=== PATIENT | female | born 1995 | race Caucasian/White ===

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

== ENCOUNTER → 2017-11-30 | Outpatient (REF) | payer OTHER | LOC: M SFHCLERA 12:18 | DX: J02.9 Acute pharyngitis, unspecified (principal) ==

== ENCOUNTER → 2017-12-26 | Outpatient (CLI) | payer OTHER ==
[2017-12-26 18:00] LABS: BASO % 0.3 % (0.0-1.0); EOS # 0.1 10^3/uL (0.0-0.50); EOS % 0.5 % (0.0-3.0); HEMATOCRIT 40.9 % (36.0-47.0); HEMOGLOBIN 13.6 g/dl (12.0-16.0); IMMATURE GRANULOCYTE # 0.1 10^3/uL (0-0); IMMATURE GRANULOCYTE % 0.5 % (0-0); LYMPH # 1.8 10^3/uL (1.5-6.5); LYMPH % 17.1 % (24.0-44.0); MEAN CORPUSCULAR HGB CONC 33.3 g/dl (32.0-36.5); MEAN CORPUSCULAR VOLUME 90.1 fl (80.0-96.0); MONO # 0.7 10^3/uL (0.0-0.8); MONO % 6.3 % (0.0-5.0); NEUTROPHILS # 7.8 10^3/uL (1.8-7.7); NEUTROPHILS % 75.3 % (36.0-66.0); PLATELET COUNT, AUTOMATED 210 10^3/uL (150-450); RED BLOOD COUNT 4.54 10^6/uL (4.00-5.40); RED CELL DISTRIBUTION WIDTH 13.3 % (11.5-14.5); WHITE BLOOD COUNT 10.4 10^3/uL (4.0-10.0)
[2017-12-26 21:30] LABS: CHLAMYDIA DNA AMPLIFICATION NEGATIVE (NEGATIVE); GC DNA AMPLIFICATION NEGATIVE (NEGATIVE)
[2017-12-28 14:41] LABS: RUBELLA IgG QUALITATIVE IMMUNE (IMMUNE)
[2017-12-28 14:50] LABS: HBsAg Prenatal NEGATIVE (NEGATIVE)
[2017-12-28 15:09] LABS: HEPATITIS C VIRUS ABY INDEX < 0.0 INDEX (<0.8)
[2017-12-28 15:11] LABS: HIV 1&2 SCREEN CENTAUR NEGATIVE (NEGATIVE)
== END ==
LOC: M LRY 11:00
DX: Z34.81 Encounter for supervision of other normal pregnancy, first trimester (principal); Z3A.01 Less than 8 weeks gestation of pregnancy
CPT/HCPCS: 86762

== ENCOUNTER → 2017-12-31 | Outpatient (REF) | payer OTHER | LOC: M SFHCLERA 11:18 | DX: R11.2 Nausea with vomiting, unspecified (principal) ==

== ENCOUNTER → 2018-03-07 | Outpatient (REF) | payer OTHER | LOC: M LAB REF 12:56 | DX: Z34.82 Encounter for supervision of other normal pregnancy, second trimester (principal) ==

== ENCOUNTER 2018-03-13 18:35 | Outpatient (CLI) | payer OTHER | END 2018-03-13 19:13 | disposition home or self-care (01) | LOC: M LDO 18:35 | DX: Z34.83 Encounter for supervision of other normal pregnancy, third trimester (principal); Z3A.20 20 weeks gestation of pregnancy | CPT/HCPCS: 59025 ==

== ENCOUNTER → 2018-05-31 | Outpatient (CLI) | payer OTHER, MEDICAID ==
[2018-05-31 09:22] LABS: GLUCOSE, FASTING 76 MG/DL (LESS THAN 95)
[2018-05-31 10:33] LABS: 1 HR GLUCOSE 192 MG/DL (LESS THAN 180)
[2018-05-31 11:26] LABS: 2 HR GLUCOSE 172 MG/DL (LESS THAN 155)
[2018-05-31 12:37] LABS: 3 HR GLUCOSE 48 MG/DL (LESS THAN 140)
== END ==
LOC: M LAB 08:10
DX: Z34.82 Encounter for supervision of other normal pregnancy, second trimester (principal); Z3A.00 Weeks of gestation of pregnancy not specified
CPT/HCPCS: 82951

== ENCOUNTER → 2018-07-03 | Outpatient (REF) | payer OTHER, MEDICAID | LOC: M LAB REF 17:12 | DX: Z34.83 Encounter for supervision of other normal pregnancy, third trimester (principal); Z3A.00 Weeks of gestation of pregnancy not specified ==

== ENCOUNTER 2018-07-08 00:31 | Outpatient (CLI) | payer OTHER, MEDICAID ==
[2018-07-08 01:12] LABS: BEDSIDE GLUCOSE 114 MG/DL (70-105)
[2018-07-08 02:29] LABS: HEMATOCRIT 27.8 % (36.0-47.0); HEMOGLOBIN 8.6 g/dl (12.0-15.5); MEAN CORPUSCULAR HEMOGLOBIN 25.1 pg (27.0-33.0); MEAN CORPUSCULAR HGB CONC 30.9 g/dl (32.0-36.5); PLATELET COUNT, AUTOMATED 209 10^3/uL (150-450); RED BLOOD COUNT 3.43 10^6/uL (4.00-5.40); RED CELL DISTRIBUTION WIDTH 14.4 % (11.5-14.5); WHITE BLOOD COUNT 10.2 10^3/uL (4.0-10.0)
[2018-07-08 02:57] LABS: ALBUMIN 2.3 GM/DL (3.2-5.2); ALKALINE PHOSPHATASE 237 U/L (45-117); ALT/SGPT 26 U/L (12-78); ANION GAP 7 MEQ/L (8-16); AST/SGOT 21 U/L (7-37); BILIRUBIN,TOTAL 0.2 MG/DL (0.2-1.0); BLOOD UREA NITROGEN 6 MG/DL (7-18); CARBON DIOXIDE LEVEL 25 MEQ/L (21-32); CHLORIDE LEVEL 110 MEQ/L (98-107); CREATININE FOR GFR 0.51 MG/DL (0.55-1.30); GLUCOSE, FASTING 94 MG/DL (70-100); POTASSIUM SERUM 3.8 MEQ/L (3.5-5.1); SODIUM LEVEL 142 MEQ/L (136-145); TOTAL PROTEIN 5.6 GM/DL (6.4-8.2)
== END 2018-07-08 03:26 | disposition home or self-care (01) ==
LOC: M LDO 00:31
DX: O99.89 Other specified diseases and conditions complicating pregnancy, childbirth and the puerperium (principal); Z3A.37 37 weeks gestation of pregnancy; D64.9 Anemia, unspecified; R20.2 Paresthesia of skin
CPT/HCPCS: 59025

== ENCOUNTER 2018-07-15 06:07 | Inpatient (IN) | payer OTHER, MEDICAID ==
[2018-07-15 08:42] LABS: HEMATOCRIT 32.9 % (36.0-47.0); HEMOGLOBIN 10.2 g/dl (12.0-15.5); MEAN CORPUSCULAR HEMOGLOBIN 24.4 pg (27.0-33.0); MEAN CORPUSCULAR VOLUME 78.7 fl (80.0-96.0); PLATELET COUNT, AUTOMATED 217 10^3/uL (150-450); RED BLOOD COUNT 4.18 10^6/uL (4.00-5.40); RED CELL DISTRIBUTION WIDTH 15.2 % (11.5-14.5)
[2018-07-15 08:46] LABS: ALBUMIN 2.5 GM/DL (3.2-5.2); ALBUMIN/GLOBULIN RATIO 0.71 (1.00-1.93); ALKALINE PHOSPHATASE 276 U/L (45-117); ALT/SGPT 25 U/L (12-78); ANION GAP 11 MEQ/L (8-16); AST/SGOT 18 U/L (7-37); BILIRUBIN,TOTAL 0.3 MG/DL (0.2-1.0); BLOOD UREA NITROGEN 6 MG/DL (7-18); CALCIUM LEVEL 8.5 MG/DL (8.5-10.1); CARBON DIOXIDE LEVEL 23 MEQ/L (21-32); CHLORIDE LEVEL 107 MEQ/L (98-107); CREATININE FOR GFR 0.67 MG/DL (0.55-1.30); GLUCOSE, FASTING 96 MG/DL (70-100); POTASSIUM SERUM 3.9 MEQ/L (3.5-5.1); SODIUM LEVEL 141 MEQ/L (136-145)
[2018-07-15] MEDS: miSOPROStol 50 MCG 1/2 TAB (S0191) PO (09:29)
[2018-07-15] MEDS: CALCIUM CARBONATE 500 MG CHEW U/D PO (11:20)
[2018-07-15] MEDS: BUTORPHANOL 2 MG/ML INJ (J0595) IV (14:14)
[2018-07-15] MEDS: PROMETHAZINE INJ 25 MG/ML VIAL (J2550) IV (14:15)
[2018-07-15] MEDS ORDERED: OXYTOCIN 30 UNITS IN 0.9% NaCl 500ML IV BAG (J2590) As Ordered (14:43)
[2018-07-15] MEDS: OXYTOCIN DRIP 30 UNITS in APPROPRIATE DILUENT 1 EA IV (15:48)
[2018-07-15] MEDS ORDERED: DOCUSATE SODIUM 100 MG CAP PO (16:00)
[2018-07-15] MEDS ORDERED: METHYLERGONOVINE MALEATE 0.2 MG TAB PO (16:00)
[2018-07-15] MEDS ORDERED: ANUSOL HC CREAM 30GM TOP (16:00)
[2018-07-15] MEDS: PRENATAL VITAMINS CHEWABLE TABLET PO (18:19)
[2018-07-15] MEDS: IBUPROFEN 800 MG TAB PO (18:21)
[2018-07-15] MEDS: ACETAMINOPHEN 500 MG TAB PO (20:12)
[2018-07-15] MEDS: DIBUCAINE 1% OINTMENT 30GM TOP (20:12)
[2018-07-16] MEDS: IBUPROFEN 800 MG TAB PO ×2 (05:41→18:33)
[2018-07-16] MEDS: PRENATAL VITAMINS CHEWABLE TABLET PO (07:51)
[2018-07-16] MEDS: ACETAMINOPHEN 500 MG TAB PO (14:33)
[2018-07-16] MEDS: MEASLES,MUMPS,RUBELLA VACCINE INJ (MMR-II) (90707) SC (15:48)
[2018-07-16] MEDS: RHOGAM 300 MCG (1500 IU) INJ (J2790) IM (15:48)
[2018-07-16] MEDS: MOM 30ML SUSPENSION UDC PO (18:33)
[2018-07-17] MEDS: PRENATAL VITAMINS CHEWABLE TABLET PO (09:06)
[2018-07-17] MEDS: IBUPROFEN 800 MG TAB PO (09:22)
[2018-07-17] MEDS: ACETAMINOPHEN 500 MG TAB PO (15:44)
== END 2018-07-17 16:07 | disposition home or self-care (01) | DRG 775 ==
LOC: M LDO 06:07 → M LDI 07:04 → M OBS 17:53
PROC: 10E0XZZ Delivery of Products of Conception, External Approach (ICD-10-PCS; principal; 2018-07-15)
DX: O42.02 Full-term premature rupture of membranes, onset of labor within 24 hours of rupture (principal); Z37.0 Single live birth; F17.200 Nicotine dependence, unspecified, uncomplicated; O99.334 Smoking (tobacco) complicating childbirth; Z3A.38 38 weeks gestation of pregnancy

== ENCOUNTER → 2019-12-24 | Outpatient (REF) | payer OTHER, MEDICAID ==
[~2019-12-24] MED LIST: IBUP-1114 PO; IRON27TA2 PO; MAPA500T2 PO; PRENTAB9 PO; ROLA1CHW PO
== END ==
LOC: M LAB REF 19:10
PROVIDERS: ATTEND Physician Assistant
DX: J02.9 Acute pharyngitis, unspecified (principal)

== ENCOUNTER → 2020-10-14 | Outpatient (REF) | payer MEDICAID, OTHER | LOC: M SFHCCLAY 08:48 | PROVIDERS: ATTEND Nurse Practitioner Family | DX: Z53.9 Procedure and treatment not carried out, unspecified reason (principal); R10.13 Epigastric pain; R19.4 Change in bowel habit; M54.5 Low back pain; M21.612 Bunion of left foot; M21.611 Bunion of right foot; F41.8 Other specified anxiety disorders ==

== ENCOUNTER → 2020-10-19 | Outpatient (CLI) | payer OTHER ==
--- NOTE | 2020-10-19 15:47 | REP ---
INDICATION: LUMBAR SPINE PAIN COMPARISON: None. TECHNIQUE: AP, lateral, bilateral oblique, and coned-down views of the lumbar spine. FINDINGS: Alignment and lordosis maintained. Vertebral bodies are intact. Disc spaces are relatively normal/age-appropriate. No acute fracture/compression injury or subluxation. No obvious spondylolysis or spondylolisthesis.. IMPRESSION: Normal Lumbosacral Spine series. If the patient remains symptomatic consider MRI for further investigation. <Electronically signed by Jonathan Macias > 10/19/20 1295
== END ==
LOC: M CLY 15:04
PROVIDERS: ATTEND Nurse Practitioner Family
DX: M54.5 Low back pain (principal)

== ENCOUNTER → 2020-10-19 | Outpatient (REF) | payer OTHER ==
[2020-10-20 12:13] LABS: BASO # 0.1 10^3/uL (0.0-0.2); BASO % 0.6 % (0.0-1.0); EOS # 0.2 10^3/uL (0.0-0.5); EOS % 2.7 % (0.0-3.0); HEMOGLOBIN 14.5 g/dl (12.0-15.5); LYMPH # 3.1 10^3/uL (1.5-5.0); LYMPH % 37.8 % (24.0-44.0); MEAN CORPUSCULAR HEMOGLOBIN 29.6 pg (27.0-33.0); MEAN CORPUSCULAR HGB CONC 31.5 g/dl (32.0-36.5); MEAN CORPUSCULAR VOLUME 93.9 fl (80.0-96.0); MONO # 0.5 10^3/uL (0.0-0.8); MONO % 6.3 % (0.0-5.0); NEUTROPHILS # 4.3 10^3/uL (1.5-8.5); NEUTROPHILS % 52.4 % (36.0-66.0); PLATELET COUNT, AUTOMATED 220 10^3/uL (150-450); WHITE BLOOD COUNT 8.3 10^3/uL (4.0-10.0)
[2020-10-20 12:58] LABS: ERYTHROCYTE SEDIMENTATION RATE 2 mm/hr (0-20)
[2020-10-20 13:46] LABS: ALT/SGPT 20 U/L (12-78); BILIRUBIN,TOTAL 0.3 MG/DL (0.2-1.0); BLOOD UREA NITROGEN 8 MG/DL (7-18); CALCIUM LEVEL 9.7 MG/DL (8.5-10.1); CARBON DIOXIDE LEVEL 29 MEQ/L (21-32); CHLORIDE LEVEL 107 MEQ/L (98-107); CREATININE FOR GFR 0.75 MG/DL (0.55-1.30); GLOMERULAR FILTRATION RATE > 60.0 (>60); GLUCOSE, FASTING 84 MG/DL (70-100); POTASSIUM SERUM 6.4 MEQ/L (3.5-5.1); RHEUMATOID FACTOR QUANT < 10.0 IU/ML (<15.0); SODIUM LEVEL 139 MEQ/L (136-145); THYROID STIMULATING HORMONE 0.646 uIU/ML (0.358-3.740); TOTAL PROTEIN 7.3 GM/DL (6.4-8.2)
[2020-10-22 20:07] LABS: ANA (HEP2) Negative (.); Lyme Disease IgG/IgM Antibodie <0.91 ISR (0.00-0.90); Lyme Disease IgM Ab Quantitati <0.80 index (0.00-0.79)
== END ==
LOC: M SFHCCLAY 15:01
PROVIDERS: ATTEND Nurse Practitioner Family
DX: R10.13 Epigastric pain (principal); R19.4 Change in bowel habit; M54.5 Low back pain; M21.612 Bunion of left foot; M21.611 Bunion of right foot; F41.8 Other specified anxiety disorders

== ENCOUNTER 2024-07-08 20:16 | Inpatient (IN) | payer MEDICAID, OTHER ==
[~2024-07-08] VITALS: Ht 170.2 cm; Wt 50.0 kg
[2024-07-08 21:04] LABS: HEMATOCRIT 43.7 % (36.0-47.0); HEMOGLOBIN 14.5 g/dl (12.0-15.5); MEAN CORPUSCULAR HEMOGLOBIN 30.3 pg (27.0-33.0); MEAN CORPUSCULAR HGB CONC 33.2 g/dl (32.0-36.5); MEAN CORPUSCULAR VOLUME 91.4 fl (80.0-96.0); PLATELET COUNT, AUTOMATED 243 10^3/uL (150-450); RED BLOOD COUNT 4.78 10^6/uL (4.00-5.40); WHITE BLOOD COUNT 9.3 10^3/uL (4.0-10.0)
[2024-07-08 21:18] LABS: BARBITURATES URINE NEGATIVE (NEGATIVE); BENZODIAZEPINES URINE NEGATIVE (NEGATIVE); METHADONE URINE NEGATIVE (NEGATIVE); OPIATES URINE NEGATIVE (NEGATIVE); PHENCYCLIDINE URINE NEGATIVE (NEGATIVE)
[2024-07-08 21:19] LABS: ETHYL ALCOHOL (ETHANOL) 0.003 % (0.000-0.010)
[2024-07-08 21:20] LABS: HCG, SERUM QUALITATIVE NEGATIVE (NEGATIVE)
[2024-07-08 21:21] LABS: AMPHETAMINES LEVEL URINE POSITIVE (NEGATIVE); CANNABINOIDS URINE POSITIVE (NEGATIVE); COCAINE METABOLITE URINE POSITIVE (NEGATIVE); SALICYLATE LEVEL < 3.0 MG/DL (<30)
[2024-07-08 21:22] LABS: ALBUMIN 4.1 G/DL (3.2-5.2); ALKALINE PHOSPHATASE 114 U/L (46-116); ALT/SGPT 21 U/L (7.0-40); AST/SGOT 16 U/L (<34); BILIRUBIN,DIRECT 0.1 MG/DL (<0.4); BILIRUBIN,TOTAL 0.4 MG/DL (0.3-1.2); BLOOD UREA NITROGEN 9 MG/DL (9-23); CALCIUM LEVEL 9.7 MG/DL (8.5-10.1); CARBON DIOXIDE LEVEL 30 MMOL/L (20-31); CHLORIDE LEVEL 106 MMOL/L (98-107); CREATININE FOR GFR 0.87 MG/DL (0.55-1.30); GLOMERULAR FILTRATION RATE > 60.0 (>60); GLUCOSE, FASTING 90 MG/DL (60-100); POTASSIUM SERUM 4.2 MMOL/L (3.5-5.1); SODIUM LEVEL 141 MMOL/L (136-145); TOTAL PROTEIN 7.4 G/DL (5.7-8.2)
[2024-07-08 21:23] LABS: THYROID STIMULATING HORMONE 1.162 uIU/ML (0.55-4.78)
[2024-07-08] MEDS ORDERED: HOME MED LIST COMPLETE! XX SCH (21:30)
[2024-07-08] MEDS: LORazepam 2 MG TAB PO ONE (22:45)
[2024-07-09] MEDS: NEOSPORIN TOP OINT 15GM TOP SCH (16:00)
[2024-07-09] MEDS: NICOTINE POLACRILEX 2 MG GUM PO PRN (16:17)
[2024-07-09] MEDS ORDERED: MOM 30ML SUSPENSION UDC PO PRN (19:50)
[2024-07-09] MEDS ORDERED: MAALOX 30 ML SUSP *UDC PO PRN (19:50)
[2024-07-09] MEDS ORDERED: NEOSPORIN TOP OINT 15GM TOP SCH (21:00)
[2024-07-09 21:05] VITALS: BP 119/56; TEMP 97.5; O2SAT 100
[2024-07-10 06:09] VITALS: BP 111/59; TEMP 98.8; O2SAT 98
[2024-07-10 17:15] VITALS: BP 121/65; TEMP 98; O2SAT 98
[2024-07-11 06:14] VITALS: BP 118/56; TEMP 98.2; O2SAT 98
[2024-07-11] MEDS: IBUPROFEN 400MG TAB PO PRN (12:05)
[2024-07-11 16:38] VITALS: BP 106/58; TEMP 98.3; O2SAT 100
[2024-07-11] MEDS: OLANZapine ORAL DISINTEGRATING TAB 5MG PO PRN (20:18)
[2024-07-11] MEDS: traZODone 50 MG TAB PO PRN (20:18)
[2024-07-12] MEDS: ACETAMINOPHEN TAB 650MG DOSE (2X325MG) PO PRN (04:35)
[2024-07-12 06:18] VITALS: BP 104/58; TEMP 97.8; O2SAT 99
[2024-07-12 15:41] VITALS: BP 104/51; TEMP 98.7; O2SAT 99
[2024-07-12] MEDS: diphenhydrAMINE 25MG CAP PO PRN (20:16)
[2024-07-13] MEDS: NICOTINE 21MG/24HR 1 EA TRANSDERMAL TD PRN (08:39)
[2024-07-13 16:35] VITALS: BP 127/71; TEMP 97.8; O2SAT 100
[2024-07-14 06:18] VITALS: BP 111/52; TEMP 98.3; O2SAT 98
== END 2024-07-14 12:02 | disposition home or self-care (01) | DRG 776 ==
LOC: M ED 20:16 → M ED INP 07-09 19:49 → M PSY 07-09 21:02
PROVIDERS: ADMIT Psychiatry & Neurology Psychiatry; ATTEND Psychiatry & Neurology Psychiatry
DX: F15.14 Other stimulant abuse with stimulant-induced mood disorder (principal); R45.851 Suicidal ideations; F43.10 Post-traumatic stress disorder, unspecified; F60.3 Borderline personality disorder; F17.210 Nicotine dependence, cigarettes, uncomplicated; Z79.899 Other long term (current) drug therapy; S60.221A Contusion of right hand, initial encounter; W22.09XA Striking against other stationary object, initial encounter; Y92.9 Unspecified place or not applicable; Y93.9 Activity, unspecified; Z62.810 Personal history of physical and sexual abuse in childhood; Z11.52 Encounter for screening for COVID-19; Z91.51 Personal history of suicidal behavior; Z56.0 Unemployment, unspecified

== ENCOUNTER → 2024-07-16 | Outpatient (CLI) | payer MEDICAID | LOC: M OUTALCOH 09:01 | PROVIDERS: ATTEND Psychiatry & Neurology Psychiatry | DX: F15.20 Other stimulant dependence, uncomplicated (principal); F12.10 Cannabis abuse, uncomplicated; F17.200 Nicotine dependence, unspecified, uncomplicated; Z03.89 Encounter for observation for other suspected diseases and conditions ruled out ==

== ENCOUNTER 2024-07-23 14:05 | Outpatient (RCR) | payer MEDICAID | END 2024-07-26 | LOC: M OUTALCOH 14:05 | PROVIDERS: ATTEND Psychiatry & Neurology Psychiatry | DX: F15.20 Other stimulant dependence, uncomplicated (principal); F12.10 Cannabis abuse, uncomplicated; F17.200 Nicotine dependence, unspecified, uncomplicated ==

== ENCOUNTER 2024-08-20 08:40 | Outpatient (RCR) | payer MEDICAID | END 2024-08-25 | LOC: M OUTALCOH 08:40 | PROVIDERS: ATTEND Psychiatry & Neurology Psychiatry | DX: F15.20 Other stimulant dependence, uncomplicated (principal); F12.10 Cannabis abuse, uncomplicated; F17.200 Nicotine dependence, unspecified, uncomplicated ==

== ENCOUNTER 2024-09-24 08:40 | Outpatient (RCR) | payer MEDICAID | END 2024-09-25 | LOC: M OUTALCOH 08:40 | PROVIDERS: ATTEND Psychiatry & Neurology Psychiatry | DX: F15.20 Other stimulant dependence, uncomplicated (principal); F12.10 Cannabis abuse, uncomplicated; F17.200 Nicotine dependence, unspecified, uncomplicated ==

== ENCOUNTER 2024-10-17 14:59 | Outpatient (RCR) | payer MEDICAID, OTHER | END 2024-10-25 | LOC: M OUTALCOH 14:59 | PROVIDERS: ATTEND Psychiatry & Neurology Psychiatry | DX: F15.20 Other stimulant dependence, uncomplicated (principal); F12.10 Cannabis abuse, uncomplicated; F17.200 Nicotine dependence, unspecified, uncomplicated ==

== ENCOUNTER 2025-07-23 05:49 | Emergency (ER) | payer OTHER ==
[~2025-07-23] VITALS: Ht 170.2 cm; Wt 51.3 kg
[2025-07-23] MEDS: NS (Normal Saline) 0.9% 1,000 ML IV ONE (07:23)
[2025-07-23] MEDS: ONDANSETRON 4MG 2ML VIAL IV ONE (07:23)
[2025-07-23 07:27] LABS: KETONE, URINE AUTO RFX TRACE mg/dL (NEGATIVE); LEUKOCYTE ESTERASE UR AUTO RFX NEGATIVE (NEGATIVE); NITRITE, URINE AUTO RFX NEGATIVE (NEGATIVE); RBC, URINE AUTO RFX 0 /HPF (0-3); SQUAM EPITHELIAL CELL UR AURFX 0 /HPF (0-6); WBC, URINE AUTO RFX 0 /HPF (0-3)
[2025-07-23 07:34] LABS: BASO # 0.1 10^3/uL (0.0-0.2); BASO % 0.6 % (0.0-1.0); EOS # 0.0 10^3/uL (0.0-0.5); EOS % 0.3 % (0.0-3.0); LYMPH # 1.5 10^3/uL (1.5-5.0); LYMPH % 16.6 % (24.0-44.0); MONO # 0.8 10^3/uL (0.0-0.8); MONO % 8.4 % (2.0-8.0); NEUTROPHILS # 6.6 10^3/uL (1.5-8.5); NEUTROPHILS % 73.9 % (36.0-66.0); PLATELET COUNT, AUTOMATED 267 10^3/uL (150-450)
[2025-07-23 08:03] LABS: HCG, SERUM QUALITATIVE NEGATIVE (NEGATIVE)
[2025-07-23 08:05] LABS: ALT/SGPT 26 U/L (7.0-40); AST/SGOT 27 U/L (<34); MAGNESIUM LEVEL 2.0 MG/DL (1.8-2.4)
[2025-07-23 08:07] LABS: FREE T4 1.74 NG/DL (0.89-1.76)
[2025-07-23] MEDS: POTASSIUM CHLORIDE 10MEQ SR TABLET PO ONE (08:07)
[2025-07-23] MEDS: ALBUTEROL SULFATE 2.5 MG/0.5 ML INH CONCENTRATE NEB SOLN NEB ONE (08:15)
[2025-07-23] MEDS ORDERED: CETI-24 PO (08:18)
[2025-07-23] MEDS ORDERED: HOME MED LIST COMPLETE! XX SCH (08:20)
[2025-07-23] MEDS: PANTOPRAZOLE 40MG VIAL IV ONE (09:22)
[2025-07-23 09:45] VITALS: BP 111/68; O2SAT 97
[2025-07-23] MEDS ORDERED: ONDA-282 PO (09:46)
[2025-07-23] MEDS ORDERED: PROT20TA11 PO (09:46)
[2025-07-23 10:01] VITALS: TEMP 97.5
== END 2025-07-23 10:10 | disposition home or self-care (01) ==
LOC: M ED 05:49
DX: R55 Syncope and collapse (principal); E86.0 Dehydration; K80.20 Calculus of gallbladder without cholecystitis without obstruction; F41.9 Anxiety disorder, unspecified; F32.A Depression, unspecified; F17.200 Nicotine dependence, unspecified, uncomplicated; Z79.83 Long term (current) use of bisphosphonates; Z79.899 Other long term (current) drug therapy
CPT/HCPCS: 71045; 76705; 80047; 80076; 81001; 83690; 83735; 84439; 84443; 84703; 85025; 93005; 93041; 96361; 96374; 96375; 99285; J2405; J2470

== ENCOUNTER 2025-11-21 16:53 | Emergency (ER) | payer OTHER ==
[~2025-11-21] VITALS: Ht 170.2 cm; Wt 55.4 kg
[~2025-11-21 16:53] MED LIST changes: +CETI-24 PO; +ONDA-282 PO; +PROT20TA11 PO
[2025-11-21 17:31] LABS: BASO # 0.0 10^3/uL (0.0-0.2); BASO % 0.3 % (0.0-1.0); EOS # 0.0 10^3/uL (0.0-0.5); EOS % 0.3 % (0.0-3.0); LYMPH # 2.3 10^3/uL (1.5-5.0); LYMPH % 21.7 % (24.0-44.0); MONO # 0.7 10^3/uL (0.0-0.8); MONO % 6.2 % (2.0-8.0); NEUTROPHILS # 7.6 10^3/uL (1.5-8.5); NEUTROPHILS % 71.3 % (36.0-66.0); PLATELET COUNT, AUTOMATED 254 10^3/uL (150-450)
[2025-11-21 17:36] LABS: KETONE, URINE AUTO RFX 1+ mg/dL (NEGATIVE); MUCUS, URINE RFX SMALL (NEGATIVE); NITRITE, URINE AUTO RFX NEGATIVE (NEGATIVE); RBC, URINE AUTO RFX 1 /HPF (0-3); SQUAM EPITHELIAL CELL UR AURFX 49 /HPF (0-6); WBC, URINE AUTO RFX 5 /HPF (0-3)
[2025-11-21 17:39] LABS: LEUKOCYTE ESTERASE UR AUTO RFX TRACE (NEGATIVE)
[2025-11-21 18:05] LABS: ALT/SGPT 32 U/L (7.0-40); AST/SGOT 28 U/L (<34); CALCIUM LEVEL 9.7 MG/DL (8.5-10.1); CARBON DIOXIDE LEVEL 27 MMOL/L (20-31); CHLORIDE LEVEL 105 MMOL/L (98-107); CREATININE FOR GFR 0.82 MG/DL (0.55-1.30); GLOMERULAR FILTRATION RATE > 90.0 (>60); POTASSIUM SERUM 3.9 MMOL/L (3.5-5.1); SODIUM LEVEL 141 MMOL/L (136-145)
[2025-11-21 18:10] LABS: HCG, SERUM QUALITATIVE NEGATIVE (NEGATIVE)
[2025-11-21] MEDS ORDERED: KETO-204 PO (18:13)
[2025-11-21 18:30] VITALS: BP 127/60; TEMP 97.8; O2SAT 96
[2025-11-21] MEDS: KETOROLAC 60 MG/2 ML VIAL IM ONE (18:48)
== END 2025-11-21 19:00 | disposition home or self-care (01) ==
LOC: M ED 18:27
DX: K80.20 Calculus of gallbladder without cholecystitis without obstruction (principal); F32.A Depression, unspecified; F41.9 Anxiety disorder, unspecified; F17.200 Nicotine dependence, unspecified, uncomplicated; Z79.899 Other long term (current) drug therapy
CPT/HCPCS: 36415; 80048; 80076; 81001; 83690; 84703; 85025; 87086; 96372; 99284; J1885